=== PATIENT | female | born 1995 | race Caucasian/White ===

== ENCOUNTER 2021-03-08 09:13 | Observation (INO) | payer OTHER ==
[2021-03-08 09:54] LABS: Basophils % 0.2 % (0-1.3); Hematocrit 39.7 % (36.0-45.0); Lymphocytes % 32.3 % (15.3-44.8); MPV 8.3 fL (7.6-11.3); RBC Red Blood Cell Count 4.71 M/uL (3.86-4.86)
[2021-03-08 10:00] LABS: Urine Blood Negative (Negative); Urine Glucose Negative (Negative); Urine Protein Negative (Negative); Urine Specific Gravity 1.015 (1.005-1.030); Urine pH 8.5 (5.0-7.0)
[2021-03-08] MEDS ORDERED: NA CHLORIDE 0.9% 1,000 ML ONE (10:02)
[2021-03-08 10:27] LABS: ALT/SGPT 22 U/L (12-78); AST/SGOT 20 U/L (15-37); Albumin 4.1 g/dL (3.4-5.0); Alkaline Phosphatase 46 U/L (45-117); BUN Blood Urea Nitrogen 9 mg/dL (7-18); Bicarbonate 29 mmol/L (21-32); Bilirubin Direct 0.2 mg/dL (0-0.2); Bilirubin Total 0.6 mg/dL (0.2-1.0); Glucose Level 96 mg/dL (74-106); Lipase 49 U/L (73-393); Potassium 4.1 mmol/L (3.5-5.1); Protein, Total 7.4 g/dL (6.4-8.2); Sodium Level 138 mmol/L (136-145)
[2021-03-08 10:48] LABS: Urine Specific Gravity/Preg 1.015 (1.005-1.030)
[2021-03-08 11:19] LABS: Urine Bacteria 20-50 /HPF (<20); Urine RBC NONE SEEN /HPF (NONE SEEN)
--- NOTE | 2021-03-08 11:41 | RAD REPORT ---
EXAM DESCRIPTION: CT - Abdomen Pelvis W Contrast - 03/08/2021 11:07 am CLINICAL HISTORY: Abdominal pain/constipation COMPARISON: none. TECHNIQUE: Computed axial tomography of the abdomen pelvis was obtained. 100 cc Isovue-300 was admin istered intravenously. Oral contrast was not requested which limits evaluation of bowel. All CT scans are performed using dose optimization technique as appropriate and may include automated exposure control or mA/KV adjustment according to patient size. FINDINGS: The liver, spleen, pancreas, adrenal and kidneys appear unremarkable. There is no evidence of diverticulitis. The cecum/ascending colon measures 8.8 centimeters. The transverse colon measures 5.4 centimeters. Th e descending colon measures 4.5 centimeters. The cecum and rectum are normal caliber. Marked amount of stool is present throughout the colon. No adnexal mass noted IMPRESSION: Marked amount of stool present throughout the colon probably a fecal impaction
[2021-03-08] MEDS ORDERED: FLEET ENEMA ADULT PR ONE (12:44)
[2021-03-08] MEDS ORDERED: MAGNESIUM CITRATE 300 ML BOT ONE (12:44)
[2021-03-08] MEDS ORDERED: KETOROLAC 30 MG/ML INJ ONE (12:44)
[2021-03-08] MEDS ORDERED: ONDANSETRON 4 MG/2 ML VIAL ONE (12:44)
--- NOTE | 2021-03-08 12:58 | ER ---
Nurse's Notes [facility] Name: Meron Tripathi Age: 25 yrs Sex: Female : 1995 Arrival Date: 03/08/2021 Time: 09:15 Bed 19 Private MD: Taina Banks Diagnosis: Fecal impaction Presentation: 03/08 09:29 Chief complaint: Patient states: abd pain/bloating, n/v, and constipation x 12 days. No sv BM x 12 days. c/o chest burning as well. Coronavirus screen: Client denies travel out of the [place] in the last 14 days. At this time, the client does not indicate any symptoms associated with coronavirus-19. Ebola Screen: No symptoms or risks identified at this time. Risk Assessment: Do you want to hurt yourself or someone else? Patient reports no desire to harm self or others. Onset of symptoms was January 2021. 09:29 Method Of Arrival: Ambulatory sv 09:29 Acuity: ANGELIQUE 3 sv 10:14 Initial Sepsis Screen: Does the patient meet any 2 criteria? No. Patient's initial ll1 sepsis screen is negative. Does the patient have a suspected source of infection? Yes: Acute abdominal pain. COMPLIANCE REPRESENTATIVE: 10:16 LMP N/A - control method ll1 Historical: - Allergies: 09:34 PENICILLINS; sv - Home Meds: :34 hydroxyzine HCl 50 mg Oral tab daily [Active]; clonidine HCl 0.1 mg Oral tab 1 tab once sv daily [Active]; melatonin 3 mg Oral tab nightly [Active]; risperidone 1 mg oral tab 1 tab once daily [Active]; risperidone 2 mg oral tab 1 tab nightly [Active]; gabapentin 600 mg oral tab 1 tab 3 times per day [Active]; atomoxetine oral 80 mg daily oral [Active]; lithium carbonate 300 mg Oral cap daily [Active]; lithium carbonate 600 mg Oral cap nightly [Active]; doxepin 25 mg Oral cap 1 cap nightly [Active]; baclofen 10 mg Oral tab as needed [Active]; Zofran (as hydrochloride) 8 mg Oral tab as needed [Active]; - PMHx: 09:34 Bipolar disorder; PCOS; sv - PSHx: 09:34 D \\T\\ C; sv - Immunization history:: Client reports receiving the 1st dose of the Covid vaccine. - Social history:: Smoking status: Patient reports the use of cigarette tobacco products, smokes one-half pack cigarettes per day. Screenin:14 Abuse screen: Denies threats or abuse. Nutritional screening: No deficits noted. ll1 Tuberculosis screening: No symptoms or risk factors identified. Fall Risk IV access (20 points). Total Metzger Fall Scale indicates No Risk (0-24 pts). Assessment: 09:40 General: Appears uncomfortable, Behavior is appropriate for age, anxious, crying. Pain: ll1 Complains of pain in abdomen diffusely Quality of pain is described as aching, pressure, Pain began 2-3 days ago. Neuro: No deficits noted. Cardiovascular: No deficits noted. Respiratory: No deficits noted. GI: Abdomen is round Bowel sounds present X 4 quads. Abd is soft and non tender X 4 quads. Reports lower abdominal pain, upper abdominal pain, bloating, constipation, nausea, vomiting. 10:40 Reassessment: No changes from previously documented assessment. Patient and/or family ll1 updated on plan of care and expected duration. Pain level reassessed. 11:40 Reassessment: No changes from previously documented assessment. Patient and/or family ll1 updated on plan of care and expected duration. Pain level reassessed. Patient is alert, oriented x 3, equal unlabored respirations, skin warm/dry/pink. 12:40 Reassessment: No changes from previously documented assessment. Patient and/or family ll1 updated on plan of care and expected duration. Pain level reassessed. 13:40 Reassessment: No changes from previously documented assessment. Patient and/or family ll1 updated on plan of care and expected duration. Pain level reassessed. Patient is alert, oriented x 3, equal unlabored respirations, skin warm/dry/pink. 14:40 Reassessment: No changes from previously documented assessment. Patient and/or family ll1 updated on plan of care and expected duration. Pain level reassessed. reports BM with small "rabbit pellets". . 15:40 Reassessment: No changes from previously documented assessment. Patient and/or family ll1 updated on plan of care and expected duration. Pain level reassessed. 16:40 Reassessment: No changes from previously documented assessment. Patient and/or family ll1 updated on plan of care and expected duration. Pain level reassessed. Patient is alert, oriented x 3, equal unlabored respirations, skin warm/dry/pink. Vital Signs: 09:25 BP 127 / 92; Pulse 94; Resp 16; Temp 98.0; Pulse Ox 99% ; ll1 10:13 BP 121 / 82; Pulse 93; Resp 16; Pulse Ox 98% on R/A; ll1 15:50 BP 95 / 65; Pulse 89; Resp 16; Temp 98.2; Pulse Ox 97% on R/A; Pain 9/10; ll1 17:01 BP 114 / 89; Pulse 86; Resp 16; Pulse Ox 98% ; ll1 ED Course: 09:15 Patient arrived in ED. am2 09:16 Taina Banks is Private Physician. am2 09:27 Heather Venegas, DANIEL is Primary Nurse. ll1 09:27 Francis Elias NP is PHCP. pm1 09:27 Donta Wilhelm MD is Attending Physician. pm1 09:29 Triage completed. sv 09:34 Arm band placed on. sv 09:58 Inserted saline lock: 20 gauge in right forearm, using aseptic technique. Blood mt collected. 10:11 Urine Microscopic Only Sent. ll1 10:14 Patient has correct armband on for positive identification. Bed in low position. Call ll1 light in reach. Side rails up X 1. Pulse ox on. NIBP on. 11:07 CT Abd/Pelvis - IV Contrast Only In Process Unspecified. EDMS 12:58 Denilson Diaz is Hospitalizing Provider. pm1 17:08 No provider procedures requiring assistance completed. Patient admitted, IV remains in ll1 place. Administered Medications: 09:45 Drug: NS 0.9% 1000 ml Route: IV; Rate: 1000 ml; Site: right forearm; ll1 13:17 Follow up: Response: No adverse reaction; RASS: Alert and Calm (0); IV Status: ll1 Completed infusion; IV Intake: 1000ml 12:50 Drug: Magnesium Citrate Liquid 300 ml Route: PO; ll1 17:01 Follow up: Response: No adverse reaction ll1 12:50 Drug: TORadol (ketorolac) 30 mg Route: IVP; Site: left antecubital; ll1 17:00 Follow up: Response: No adverse reaction; RASS: Alert and Calm (0) ll1 12:50 Drug: Zofran (Ondansetron) 4 mg Route: IVP; Site: right antecubital; 1 17:00 Follow up: Response: No adverse reaction; RASS: Alert and Calm (0) 1 13:17 Drug: Fleet Enema (sodium phosphate) 133 ml Route: [place]; ll1 17:01 Follow up: Response: No adverse reaction 1 Intake: 13:17 IV: 1000ml; Total: 1000ml. 1 Outcome: 12:58 Decision to Hospitalize by Provider. pm1 17:08 Admitted to Med/surg accompanied by tech, via wheelchair, room 215, with chart, Report ll1 called to Veronique Singh RN on . 17:08 Condition: stable 17:08 Instructed on the need for admit. 17:25 Patient left the ED. 1 Signatures: Dispatcher [employer] Mary Hernandez RN RN sv Marinas, Patrick, NP INTERNATIONAL EDITORIAL PRODUCER pm1 Regina Rodriguez amLesa Correa mt, Lynsay, RN RN 1
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
[2021-03-08] MEDS ORDERED: BISACODYL 10 MG RECTAL SUPP PR PRN (17:43)
[2021-03-08 17:59] VITALS: BMI 23.3
[2021-03-08] MEDS ORDERED: METOCLOPRAMIDE 10 MG/2mL INJ IV SCH (18:06)
[2021-03-08] MEDS: NA CHLORIDE 0.9% 1,000 ML IV SCH (18:10)
[2021-03-08] MEDS ORDERED: BACLOFEN 10 MG TAB PO PRN (18:50)
[2021-03-08] MEDS ORDERED: KETOROLAC 30 MG/ML INJ IV PRN (18:51)
[2021-03-08] MEDS ORDERED: CEFTRIAXONE/SWI 1gm 1 GM/10 ML SYR IV SCH (20:00)
[2021-03-08] MEDS: SENOSIDES 8.6 MG TAB PO SCH (20:46)
[2021-03-08] MEDS: POLYETHYL GLY 3350 17 GM/DOSE PO SCH (20:47)
[2021-03-08] MEDS: GABAPENTIN 300 MG CAP PO SCH (20:47)
[2021-03-08] MEDS ORDERED: DOXEPIN HCL 25 MG CAP PO SCH (21:00)
[2021-03-08] MEDS ORDERED: RISPERIDONE 1 MG TABLET PO SCH (21:00)
[2021-03-08] MEDS ORDERED: MELATONIN 3 MG TABLET PO SCH (21:00)
[2021-03-08] MEDS ORDERED: LITHIUM CARBONATE 300 MG TAB PO SCH (21:00)
[2021-03-08] MEDS: ONDANSETRON 4 MG/2 ML VIAL IV PRN (22:06)
[2021-03-09] MEDS: NA CHLORIDE 0.9% 1,000 ML IV SCH (04:13)
[2021-03-09] MEDS: ONDANSETRON 4 MG/2 ML VIAL IV PRN ×2 (04:58→13:43)
[2021-03-09 06:19] LABS: Absolute Lymphocytes (CBC) 2.5 K/uL (0.7-4.9); Basophils % 0.2 % (0-1.3); Hematocrit 34.2 % (36.0-45.0); Lymphocytes % 53.5 % (15.3-44.8); MPV 8.4 fL (7.6-11.3)
[2021-03-09 06:27] LABS: Magnesium 2.8 mg/dL (1.8-2.4); Potassium 3.9 mmol/L (3.5-5.1)
[2021-03-09 07:28] LABS: Blood Morphology Comment NOT SEEN (NOT SEEN); Platelet Estimate ADEQ
[2021-03-09] MEDS ORDERED: cloNIDine HCL 0.1 MG TAB PO SCH (09:00)
[2021-03-09] MEDS ORDERED: CEFTRIAXONE 1 GM/NS 50 ML 1 GM/50 ML BAG IV SCH (09:00)
[2021-03-09] MEDS ORDERED: RISPERIDONE 1 MG TABLET PO SCH (09:00)
[2021-03-09] MEDS ORDERED: ATOMOXETINE HCL 80 MG PO SCH (09:00)
[2021-03-09] MEDS ORDERED: LITHIUM CARBONATE 300 MG TAB PO SCH (09:00)
[2021-03-09] MEDS: GABAPENTIN 300 MG CAP PO SCH (09:53)
[2021-03-09] MEDS: SENOSIDES 8.6 MG TAB PO SCH (09:53)
[2021-03-09] MEDS: POLYETHYL GLY 3350 17 GM/DOSE PO SCH (09:54)
[2021-03-09 10:21] VITALS: O2SAT 100
--- NOTE | 2021-03-09 11:18 | RAD REPORT ---
EXAM DESCRIPTION: RAD - Abdomen 1 View (KUB) - 03/09/2021 11:07 am CLINICAL HISTORY: constipation, eval colon distention COMPARISON: No comparisons FINDINGS: Stomach is mostly decompressed. No small bowel dilatation identified. Air is present throu ghout nondilated common nondistended colon. A small amount of stool is present in the ascending colon and the sigmoid colon. No free air or pneumatosis. No significant bony findings IMPRESSION: Unremarkable bowel gas pattern. No constipation or colon distention pattern.
[2021-03-09 12:08] VITALS: BP 105/56; TEMP 98.1
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
[2021-03-10] MEDS ORDERED: ATOMOXETINE HCL 80 MG PO SCH (09:00)
== END 2021-03-09 13:59 | disposition home or self-care (01) ==
LOC: ER 09:13 → 2ND 16:45
PROVIDERS: ADMIT Internal Medicine; ATTEND Hospitalist
DX: K59.04 Chronic idiopathic constipation (principal); F41.9 Anxiety disorder, unspecified; F19.10 Other psychoactive substance abuse, uncomplicated; N39.0 Urinary tract infection, site not specified; Z20.822 Contact with and (suspected) exposure to COVID-19
CPT/HCPCS: 36415; 74018; 74177; 80048; 80076; 81003; 81015; 81025; 83690; 83735; 85025; 87086; 87088; 99285; G0378; J0696; J2405; J2765; J7030; Q9967; U0003